=== PATIENT | male | born 1985 | race Caucasian/White ===

== ENCOUNTER 2016-09-12 04:24 | Emergency (ER) | payer OTHER ==
[~2016-09-12] VITALS: Ht 172.7 cm; Wt 99.8 kg
--- NOTE | 2016-09-12 04:55 | PHYS DOC ---
Past Medical History Past Medical History: Other Additional Past Medical Histor: kidney stones Past Surgical History: Other Additional Past Surgical Histo: knee sx Alcohol Use: Occasionally Drug Use: Marijuana Adult General Chief Complaint Chief Complaint: TESTICULAR PAIN OR INJURY HPI HPI Patient is a 31 year old male who presents with complaint of testicular pain. Patient states that his symptoms started approximately 4-1/2 hours ago. Patient states that the pain came on gradually and described the pain initially as dull , however the pain has increased in intensity and become very sharp. Patient states that is localized to his groin and testicles. Patient states that he had similar symptoms in the past associated with kidney stones. Patient states he has had associated nausea and vomiting with his symptoms. Patient has not taken any medications to help with his symptoms at this time. Patient states that he has also had decreased urine output since onset of symptoms. Patient states that movement and vibration worsen his pain. Patient denies any associated fevers or shortness of breath. Review of Systems Review of Systems Constitutional: Denies fever or chills [] Eyes: Denies change in visual acuity, redness, or eye pain [] HENT: Denies nasal congestion or sore throat [] Respiratory: Denies cough or shortness of breath [] Cardiovascular: Denies chest pain or edema [] GI: Lower abdominal pain, nausea, vomiting [] : Oliguria, testicular pain [] Musculoskeletal: Denies back pain or joint pain [] Integument: Denies rash or skin lesions [] Neurologic: Denies headache, focal weakness or sensory changes [] Current Medications Current Medications Current Medications Medications (Trade) Dose Ordered Sig/Uzma Start Time Stop Time Status Last Admin Dose Admin Ketorolac Tromethamine (Toradol) 30 mg 1X ONCE 09/12/16 05:15 09/12/16 05:16 DC 09/12/16 05:06 30 MG Morphine Sulfate 4 mg 4 mg PRN Q15MIN PRN 09/12/16 05:00 09/13/16 04:59 09/12/16 05:07 4 MG Ondansetron HCl (Zofran) 4 mg 1X ONCE 09/12/16 05:15 09/12/16 05:16 DC 09/12/16 05:07 4 MG Sodium Chloride (Iv Sodium Chloride 0.9% 1000ml Bag) 1,000 ml @ 1,000 mls/hr Q1H 09/12/16 05:00 09/12/16 05:59 09/12/16 05:00 1,000 MLS/HR Tamsulosin HCl (Flomax) 0.4 mg 1X ONCE 09/12/16 06:00 09/12/16 06:01 09/12/16 05:33 0.4 MG Allergies Allergies Allergies Coded Allergies Type Severity Reaction Last Updated Verified No Known Drug Allergies 09/12/16 No Physical Exam Physical Exam Constitutional: Alert, afebrile, appears in moderate to severe discomfort. [] HENT: Normocephalic, atraumatic, bilateral external ears normal, oropharynx moist, no oral exudates, nose normal. [] Eyes: PERRLA, EOMI, conjunctiva normal, no discharge. [] Neck: Normal range of motion, no tenderness, supple, no stridor. [] Cardiovascular:Heart rate regular rhythm, no murmur [] Lungs & Thorax: Bilateral breath sounds clear to auscultation [] Abdomen: Bowel sounds normal, soft, no tenderness, no masses, no pulsatile masses. : Circumcised, normal external exam, tenderness to palpation along bilateral testicles, left greater than right, no palpable inguinal masses [] Skin: Warm, dry, no erythema, no rash. [] Back: No tenderness, no CVA tenderness. [] Extremities: No tenderness, no cyanosis, no clubbing, ROM intact, no edema. [] Neurologic: Alert and oriented X 3, normal motor function, normal sensory function, no focal deficits noted. [] Current Patient Data Vital Signs Vital Signs Date Time Temp Pulse Resp B/P Pulse Ox O2 Delivery O2 Flow Rate FiO2 09/12/16 05:07 16 Room Air 09/12/16 04:38 98.1 71 138/73 97 98.1 Lab Values Laboratory Tests Test 09/12/16 04:11 White Blood Count 11.9x10^3/uL (4.0-11.0) H Red Blood Count 5.19x10^6/uL (4.30-5.70) Hemoglobin 15.2g/dL (13.0-17.5) Hematocrit 45.1% (39.0-53.0) Mean Corpuscular Volume 87fL (79-100) Mean Corpuscular Hemoglobin 29pg (25-35) Mean Corpuscular Hemoglobin Concent 34g/dL (31-37) Red Cell Distribution Width 13.7% (11.5-14.5) Platelet Count 202x10^3/uL (140-400) Neutrophils (%) (Auto) 76% (31-73) H Lymphocytes (%) (Auto) 18% (24-48) L Monocytes (%) (Auto) 5% (0-9) Eosinophils (%) (Auto) 0% (0-3) Basophils (%) (Auto) 1% (0-3) Neutrophils # (Auto) 9.0x10^3uL (1.8-7.7) H Lymphocytes # (Auto) 2.2x10^3/uL (1.0-4.8) Monocytes # (Auto) 0.6x10^3/uL (0.0-1.1) Eosinophils # (Auto) 0.1x10^3/uL (0.0-0.7) Basophils # (Auto) 0.1x10^3/uL (0.0-0.2) Sodium Level 142mmol/L (136-145) Potassium Level 3.4mmol/L (3.5-5.1) L Chloride Level 103mmol/L (98-107) Carbon Dioxide Level 26mmol/L (21-32) Anion Gap 13 (6-14) Blood Urea Nitrogen 20mg/dL (8-26) Creatinine 1.7mg/dL (0.7-1.3) H Estimated GFR (Cockcroft-Gault) 47.9 BUN/Creatinine Ratio 12 (6-20) Glucose Level 123mg/dL (70-99) H Calcium Level 8.9mg/dL (8.5-10.1) Total Bilirubin 1.2mg/dL (0.2-1.0) H Aspartate Amino Transferase (AST) 14U/L (15-37) L Alanine Aminotransferase (ALT) 38U/L (16-63) Alkaline Phosphatase 61U/L (46-116) Total Protein 7.3g/dL (6.4-8.2) Albumin 4.2g/dL (3.4-5.0) Albumin/Globulin Ratio 1.4 (1.0-1.7) Laboratory Tests 09/12/16 04:11 Laboratory Tests 09/12/16 04:11 EKG EKG Not performed [] Radiology/Procedures Radiology/Procedures [facility] [address] [place] [address] IMAGING REPORT Signed PATIENT: JAXON GUPTA ACCOUNT: [id number] : 1985 LOCATION: ER AGE: 31 SEX: M EXAM STATUS: PRE ER ORD. PHYSICIAN: ANMOL CONTI MD REASON: groin pain, history of kidney stones, patient states similar symptoms PROCEDURE: CT ABDOMEN PELVIS WO CONTRAST CT abdomen and pelvis with out contrast Indication: Groin pain and history of kidney stones. Axial imaging through the abdomen and pelvis was performed without contrast. PQRS STATEMENT One or more of the following individualized dose reduction techniques were utilized for this study: 1.Automated exposure control. 2.Adjustment of the mA and/orkVaccording to patient size. 3.Use of iterative reconstruction technique. No prior studies are available for comparison. The lung bases are clear. No discrete liver mass is detected. The gallbladder is unremarkable. The pancreas and spleen are unremarkable. No adrenal mass is detected. No renal calculi are identified. The left kidney is enlarged. There is left hydroureteronephrosis, traced to the distal ureter where there is a stone located just above the UVJ measuring 4 millimeters. No other ureteral calculi are seen. The right ureter is unremarkable. The appendix is unremarkable. The small and large bowel loops are normal caliber. There is no ascites. The aorta is not aneurysmal. Impression: 4 millimeter distal left ureteric calculus producing moderate hydroureteronephrosis. No other significant abnormality is seen. Electronically signed by: Jeanmarie Lopez MD (Sep 12, 2016 05:26:08) DICTATED and SIGNED BY: JEANMARIE LOPEZ MD DATE: 09/12/16525 CC: ANMOL CONTI MD ~ [] Course & Med Decision Making Course & Med Decision Making Pertinent Labs and Imaging studies reviewed. (See chart for details) Patient was given IV morphine, Zofran, Toradol, and IV fluids. On reevaluation the patient states he feels much better at this time. Patient found to have a 4 mm distal left ureteral stone. The patient was started on Flomax. Patient is pain controlled at this time. The patient will be discharged home with prescriptions for Hammond, Zofran, and Flomax. Patient referred to Dr. Navarro for follow-up in 5-7 days. Advised return to emergency department for any worsening symptoms. Patient voiced understanding and in agreement with treatment plan. Dragon Disclaimer Dragon Disclaimer This electronic medical record was generated, in whole or in part, using a voice recognition dictation system. Departure Departure Impression: Primary Impression: Ureteral stone Disposition: HOME, SELF-CARE Condition: IMPROVED Referrals: DEJON NAVARRO DO Patient Instructions: Kidney Stones, Ureteral Colic Additional Instructions: Follow-up with Dr. Navarro in 5-7 days. Return to the emergency department for any worsening symptoms. Scripts Hydrocodone/Apap 5-325 (Hammond 5-325 Tablet)1 Each Tablet1-2 Tab PO Q4-6HRS #20 TAB Prov:ANMOL CONTI MD 09/12/16 Ondansetron (Zofran Odt)4 Mg Tab.rapdis1 Tab SL Q8HRS PRN NAUSEA/VOMITING #15 TAB Prov:ANMOL CONTI MD 09/12/16 Tamsulosin Hcl (Flomax)0.4 Mg Cap.er.24h1 Cap PO DAILY #15 CAP Ref 0 Prov:ANMOL CONTI MD 09/12/16 ANMOL CONTI MD Sep 12, 2016 04:55
[2016-09-12] MEDS ORDERED: MORPHINE SULFATE 4 MG/ML DISP.SYRIN. IV/SQ PRN (05:00)
[2016-09-12] MEDS ORDERED: IV NORMAL SALINE 1000ML BAG 1,000 ML IV SCH (05:00)
[2016-09-12 05:07] LABS: BILIRUBIN,URINE SMALL (NEG); GLUCOSE,URINE NEGATIVE (NEG); NITRITE,URINE NEGATIVE (NEG); PROTEIN,URINE 30 mg/dL (NEG-TRACE)
[2016-09-12 05:09] LABS: BASO # 0.1 x10^3/uL (0.0-0.2); BASO % 1 % (0-3); EOS % 0 % (0-3); HEMATOCRIT 45.1 % (39.0-53.0); HEMOGLOBIN 15.2 g/dL (13.0-17.5); LYMPH # 2.2 x10^3/uL (1.0-4.8); LYMPH % 18 % (24-48); MEAN CORPUSCULAR HEMOGLOBIN 29 pg (25-35); MEAN CORPUSCULAR HGB CONC 34 g/dL (31-37); MEAN CORPUSCULAR VOLUME 87 fL (79-100); MONO % 5 % (0-9); NEUT % 76 % (31-73); PLATELET COUNT 202 x10^3/uL (140-400); RED BLOOD COUNT 5.19 x10^6/uL (4.30-5.70); RED CELL DISTRIBUTION WIDTH 13.7 % (11.5-14.5); WHITE BLOOD COUNT 11.9 x10^3/uL (4.0-11.0)
[2016-09-12] MEDS ORDERED: ONDANSETRON PF 4 MG/2 ML VIAL. IV ONE (05:15)
[2016-09-12] MEDS ORDERED: KETOROLAC TROMETHAMINE 30 MG/ML INJ. IV ONE (05:15)
--- NOTE | 2016-09-12 05:27 | RAD ---
CT abdomen and pelvis with out contrast Indication: Groin pain and history of kidney stones. Axial imaging through the abdomen and pelvis was performed without contrast. PQRS STATEMENT One or more of the following individualized dose reduction techniques were utilized for this study: 1.Automated exposure control. 2.Adjustment of the mA and/orkVaccording to patient size. 3.Use of iterative reconstruction technique. No prior studies are available for comparison. The lung bases are clear. No discrete liver mass is detected. The gallbladder is unremarkable. The pancreas and spleen are unremarkable. No adrenal mass is detected. No renal calculi are identified. The left kidney is enlarged. There is left hydroureteronephrosis, traced to the distal ureter where there is a stone located just above the UVJ measuring 4 millimeters. No other ureteral calculi are seen. The right ureter is unremarkable. The appendix is unremarkable. The small and large bowel loops are normal caliber. There is no ascites. The aorta is not aneurysmal. Impression: 4 millimeter distal left ureteric calculus producing moderate hydroureteronephrosis. No other significant abnormality is seen. Electronically signed by: Jeanmarie Lopez MD (Sep 12, 2016 05:26:08)
[2016-09-12 05:32] LABS: CALCIUM 8.9 mg/dL (8.5-10.1); CREATININE 1.7 mg/dL (0.7-1.3); GFR 47.9; POTASSIUM 3.4 mmol/L (3.5-5.1)
[2016-09-12] MEDS ORDERED: OXYC-323 PO (05:36)
[2016-09-12] MEDS ORDERED: ONDA4TAB10 SL (05:36)
[2016-09-12] MEDS ORDERED: TAMS0.4C97 PO (05:36)
[2016-09-12 05:38] LABS: ALBUMIN 4.2 g/dL (3.4-5.0); ALBUMIN/GLOBULIN RATIO 1.4 (1.0-1.7); TOTAL BILIRUBIN 1.2 mg/dL (0.2-1.0); TOTAL PROTEIN 7.3 g/dL (6.4-8.2)
[2016-09-12 05:48] LABS: RBC,URINE >40 /HPF (0-2)
[2016-09-12 05:49] LABS: BACTERIA,URINE 0 /HPF (0-FEW); WBC,URINE 0 /HPF (0-4)
[2016-09-12] MEDS ORDERED: HYDR-971 PO (05:50)
[2016-09-12 05:55] VITALS: BP 118/78
[2016-09-12] MEDS ORDERED: TAMSULOSIN 0.4 MG CAP.ER.24H. PO ONE (06:00)
== END 2016-09-12 06:06 | disposition home or self-care (01) ==
LOC: ER 04:24
DX: N20.1 Calculus of ureter (principal); F12.10 Cannabis abuse, uncomplicated
CPT/HCPCS: 36415; 74176; 80053; 81001; 85027; 87086; 96361; 96374; 96375; 99285; J1885; J2270; J2405; J7030

== ENCOUNTER 2019-01-06 20:12 | Emergency (ER) | payer BC, OTHER ==
[~2019-01-06] VITALS: Ht 172.7 cm; Wt 90.7 kg
[~2019-01-06 20:12] MED LIST: HYDR-3164 PO; ONDA4TAB10 SL; OXYC1TAB15 PO; TAMS0.4C97 PO
[2019-01-06] MEDS ORDERED: IV NORMAL SALINE 1000ML BAG 1,000 ML IV ONE (20:45)
[2019-01-06 20:48] LABS: BASO # 0.1 x10^3/uL (0.0-0.2); BASO % 1 % (0-3); EOS # 0.2 x10^3/uL (0.0-0.7); EOS % 2 % (0-3); HEMATOCRIT 47.9 % (39.0-53.0); HEMOGLOBIN 16.5 g/dL (13.0-17.5); LYMPH # 3.6 x10^3/uL (1.0-4.8); LYMPH % 35 % (24-48); MEAN CORPUSCULAR HEMOGLOBIN 31 pg (25-35); MEAN CORPUSCULAR HGB CONC 35 g/dL (31-37); MEAN CORPUSCULAR VOLUME 90 fL (79-100); MONO # 0.8 x10^3/uL (0.0-1.1); MONO % 8 % (0-9); NEUT # 5.7 x10^3/uL (1.8-7.7); NEUT % 55 % (31-73); PLATELET COUNT 218 x10^3/uL (140-400); RED BLOOD COUNT 5.29 x10^6/uL (4.30-5.70); RED CELL DISTRIBUTION WIDTH 13.5 % (11.5-14.5); WHITE BLOOD COUNT 10.4 x10^3/uL (4.0-11.0)
[2019-01-06 20:57] LABS: CREATININE 1.4 mg/dL (0.7-1.3); GFR 59.1; POTASSIUM 3.7 mmol/L (3.5-5.1)
[2019-01-06 21:03] LABS: ALBUMIN 4.3 g/dL (3.4-5.0); ALBUMIN/GLOBULIN RATIO 1.3 (1.0-1.7); MAGNESIUM 1.9 mg/dL (1.8-2.4); TOTAL BILIRUBIN 1.4 mg/dL (0.2-1.0); TOTAL PROTEIN 7.7 g/dL (6.4-8.2)
[2019-01-06 21:11] LABS: BILIRUBIN,URINE SMALL (NEG); CLARITY,URINE CLEAR; COLOR,URINE ORANGE; NITRITE,URINE NEGATIVE (NEG); PH,URINE 5.5; PROTEIN,URINE 30 mg/dL (NEG-TRACE)
[2019-01-06 21:13] LABS: CREATINE KINASE 79 U/L (39-308)
[2019-01-06 21:18] LABS: BARBITURATES NEG (NEG); BENZODIAZEPINES NEG (NEG); CANNABINOIDS POS (NEG); COCAINE NEG (NEG); METHADONE NEG (NEG); OPIATES NEG (NEG); PHENCYCLIDINE NEG (NEG)
[2019-01-06 21:19] LABS: SQUAMOUS EPITHELIAL CELL,UR FEW /LPF
[2019-01-06 21:20] LABS: AMPHETAMINE/METHAMPHETAMINE NEG (NEG); BACTERIA,URINE 0 /HPF (0-FEW); RBC,URINE 0 /HPF (0-2)
--- NOTE | 2019-01-06 21:39 | PHYS DOC ---
Past Medical History Past Medical History: Other Additional Past Medical Histor: kidney stones Past Surgical History: Other Additional Past Surgical Histo: knee sx Alcohol Use: Occasionally Drug Use: Marijuana Adult General Chief Complaint Chief Complaint: RAPID HEART RATE HPI HPI Patient is a 33 year old [f__sex] who presents with [] Review of Systems Review of Systems Constitutional: Denies fever or chills [] Eyes: Denies change in visual acuity, redness, or eye pain [] HENT: Denies nasal congestion or sore throat [] Respiratory: Denies cough or shortness of breath [] Cardiovascular: No additional information not addressed in HPI [] GI: Denies abdominal pain, nausea, vomiting, bloody stools or diarrhea [] : Denies dysuria or hematuria [] Musculoskeletal: Denies back pain or joint pain [] Integument: Denies rash or skin lesions [] Neurologic: Denies headache, focal weakness or sensory changes [] Endocrine: Denies polyuria or polydipsia [] All other systems were reviewed and found to be within normal limits, except as documented in this note. Current Medications Current Medications Current Medications Medications (Trade) Dose Ordered Sig/Uzma Start Time Stop Time Status Last Admin Dose Admin Sodium Chloride 1,000 ml @ 1,000 mls/hr 1X ONCE 01/06/19 20:45 01/06/19 21:44 DC 01/06/19 20:59 1,000 MLS/HR Allergies Allergies Allergies Coded Allergies Type Severity Reaction Last Updated Verified No Known Drug Allergies 09/12/16 No Physical Exam Physical Exam Constitutional: Well developed, well nourished, no acute distress, non-toxic appearance. [] HENT: Normocephalic, atraumatic, bilateral external ears normal, oropharynx moist, no oral exudates, nose normal. [] Eyes: PERRLA, EOMI, conjunctiva normal, no discharge. [] Neck: Normal range of motion, no tenderness, supple, no stridor. [] Cardiovascular:Heart rate regular rhythm, no murmur [] Lungs & Thorax: Bilateral breath sounds clear to auscultation [] Abdomen: Bowel sounds normal, soft, no tenderness, no masses, no pulsatile masses. [] Skin: Warm, dry, no erythema, no rash. [] Back: No tenderness, no CVA tenderness. [] Extremities: No tenderness, no cyanosis, no clubbing, ROM intact, no edema. [] Neurologic: Alert and oriented X 3, normal motor function, normal sensory function, no focal deficits noted. [] Psychologic: Affect normal, judgement normal, mood normal. [] Current Patient Data Vital Signs Vital Signs Date Time Temp Pulse Resp B/P (MAP) Pulse Ox O2 Delivery O2 Flow Rate FiO2 01/06/19 21:45 62 21 122/77 (92) 97 Room Air 01/06/19 20:17 98.0 98.0 Lab Values Laboratory Tests Test 01/06/19 20:23 01/06/19 20:55 White Blood Count 10.4 x10^3/uL (4.0-11.0) Red Blood Count 5.29 x10^6/uL (4.30-5.70) Hemoglobin 16.5 g/dL (13.0-17.5) Hematocrit 47.9 % (39.0-53.0) Mean Corpuscular Volume 90 fL (79-100) Mean Corpuscular Hemoglobin 31 pg (25-35) Mean Corpuscular Hemoglobin Concent 35 g/dL (31-37) Red Cell Distribution Width 13.5 % (11.5-14.5) Platelet Count 218 x10^3/uL (140-400) Neutrophils (%) (Auto) 55 % (31-73) Lymphocytes (%) (Auto) 35 % (24-48) Monocytes (%) (Auto) 8 % (0-9) Eosinophils (%) (Auto) 2 % (0-3) Basophils (%) (Auto) 1 % (0-3) Neutrophils # (Auto) 5.7 x10^3/uL (1.8-7.7) Lymphocytes # (Auto) 3.6 x10^3/uL (1.0-4.8) Monocytes # (Auto) 0.8 x10^3/uL (0.0-1.1) Eosinophils # (Auto) 0.2 x10^3/uL (0.0-0.7) Basophils # (Auto) 0.1 x10^3/uL (0.0-0.2) Sodium Level 141 mmol/L (136-145) Potassium Level 3.7 mmol/L (3.5-5.1) Chloride Level 101 mmol/L (98-107) Carbon Dioxide Level 28 mmol/L (21-32) Anion Gap 12 (6-14) Blood Urea Nitrogen 13 mg/dL (8-26) Creatinine 1.4 mg/dL (0.7-1.3) H Estimated GFR (Cockcroft-Gault) 59.1 BUN/Creatinine Ratio 9 (6-20) Glucose Level 119 mg/dL (70-99) H Lactic Acid Level 2.1 mmol/L (0.4-2.0) H Calcium Level 9.0 mg/dL (8.5-10.1) Magnesium Level 1.9 mg/dL (1.8-2.4) Total Bilirubin 1.4 mg/dL (0.2-1.0) H Aspartate Amino Transferase (AST) 15 U/L (15-37) Alanine Aminotransferase (ALT) 20 U/L (16-63) Alkaline Phosphatase 69 U/L (46-116) Creatine Kinase 79 U/L (39-308) Creatine Kinase MB (Mass) < 0.5 ng/mL (0.0-3.6) Creatine Kinase MB Relative Index % (0-4) Troponin I Quantitative < 0.017 ng/mL (0.000-0.055) Total Protein 7.7 g/dL (6.4-8.2) Albumin 4.3 g/dL (3.4-5.0) Albumin/Globulin Ratio 1.3 (1.0-1.7) Urine Collection Type Unknown Urine Color [place] Urine Clarity Clear Urine pH 5.5 Urine Specific [place] >=1.030 Urine Protein 30 mg/dL (NEG-TRACE) Urine Glucose (UA) Negative mg/dL (NEG) Urine Ketones (Stick) Negative mg/dL (NEG) Urine Blood Negative (NEG) Urine Nitrite Negative (NEG) Urine Bilirubin Small (NEG) Urine Urobilinogen Dipstick 1.0 mg/dL (0.2 mg/dL) Urine Leukocyte Esterase Small (NEG) Urine RBC 0 /HPF (0-2) Urine WBC 1-4 /HPF (0-4) Urine Squamous Epithelial Cells Few /LPF Urine Bacteria 0 /HPF (0-FEW) Urine Mucus Mod /LPF Urine Opiates Screen Neg (NEG) Urine Methadone Screen Neg (NEG) Urine Barbiturates Neg (NEG) Urine Phencyclidine Screen Neg (NEG) Urine Amphetamine/Methamphetamine Neg (NEG) Urine Benzodiazepines Screen Neg (NEG) Urine Cocaine Screen Neg (NEG) Urine Cannabinoids Screen Pos (NEG) Urine Ethyl Alcohol Neg (NEG) Laboratory Tests 01/06/19 20:23 Laboratory Tests 01/06/19 20:23 EKG EKG @2021 NSR at 76bpm, J point elevation I-II and aVF, V2-V6, Radiology/Procedures Radiology/Procedures [] Course & Med Decision Making Course & Med Decision Making Pertinent Labs and Imaging studies reviewed. (See chart for details) [] Dragon Disclaimer Dragon Disclaimer This electronic medical record was generated, in whole or in part, using a voice recognition dictation system. Departure Departure Impression: Primary Impression: Syncope Additional Impression: Lactic acidosis Disposition: 01 HOME, SELF-CARE Condition: STABLE Referrals: UNKNOWN PCP NAME (PCP) GERA DENNY MD, PRASHANTH S MD Patient Instructions: Lactic Acid, Lactate, Syncope, [id number] Additional Instructions: Increase fluid hydration. Refrain from any alcohol or THC use. Problem Qualifiers Primary Impression: Syncope Syncope type: unspecified Qualified Codes: R55 - Syncope and collapse CHARLES GIBBONS DO Jan 06, 2019 21:39
[2019-01-06 21:45] VITALS: BP 122/77
--- NOTE | 2019-01-07 10:43 | EKG ---
[facility] [address] [place] [address] Test Date: 2019-01-06 Test Time: 20:22:23 Pat Name: JAXON GUPTA Department: Room: Gender: M [employer]: : 1985 Requested By: CHARLES GIBBONS Order Number: [id number] Reading MD: Measurements Intervals [place] Rate: 76 P: 30 MA: 154 QRS: 50 QRSD: 88 T: 41 QT: 340 QTc: 386 Interpretive Statements SINUS RHYTHM OTHERWISE NORMAL ECG RI6.01 Unconfirmed report No previous ECG available for comparison
== END 2019-01-06 21:55 | disposition home or self-care (01) ==
LOC: ER 20:12
DX: R55 Syncope and collapse (principal); E87.2 Acidosis
CPT/HCPCS: 36415; 80053; 80307; 81001; 82553; 83605; 83735; 84484; 85025; 87086; 93005; 96360; 99285; J7030